=== PATIENT | female | born 2005 | race Caucasian/White ===

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

== ENCOUNTER 2024-12-14 06:37 | Emergency (ER) | payer MEDICAID ==
[2024-12-14] MEDS ORDERED: ZITHROMAX250 MG PO (06:59)
[2024-12-14] MEDS ORDERED: AZITHROMYCIN 250 MG TAB PO ONE (07:00)
== END 2024-12-14 07:07 | disposition home or self-care (01) ==
LOC: ED 06:37
DX: J02.9 Acute pharyngitis, unspecified (principal)